=== PATIENT | male | born 1985 | race American Indian/Alaskan Native ===

== ENCOUNTER 2017-01-13 10:18 | Emergency (ER) | payer OTHER ==
[2017-01-13 10:30] VITALS: RESP 16; TEMP 98.1; BMI 32.7
[2017-01-13] MEDS ORDERED: TDAP Vaccine 0.5 mL Syr IM ONE (10:47)
[2017-01-13] MEDS ORDERED: EPINEPHrine 1 mg/ml (1:1000) Inj SC STA (10:47)
--- NOTE | 2017-01-13 10:52 | ED PDOC ---
Arrival/HPI - General Chief Complaint: Finger,Hand,&Wrist Time Seen by Provider: 01/13/17 10:47 Historian: Patient - History of Present Illness Narrative History of Present Illness (Text): 01/13/17 10:48 This 31 yo male presents to this ED c/o left finger laceration x [employer]. Patient stated he was doing work by himself, when a metal cut finger. He stated he is able to move his finger without problem. Last tetanus is UKN. Patient denies other complains. Time/Duration: Prior to Arrival Symptom Onset: Sudden Context: Home Past Medical History - Provider Review Nursing Documentation Reviewed: Yes - Psychiatric Hx Substance Use: No Family/Social History - Physician Review Nursing Documentation Reviewed: Yes Family/Social History: Other (noncontributory) Smoking Status: Never Smoked Hx Alcohol Use: Yes Frequency of alcohol use: Socially Hx Substance Use: No Allergies/Home Meds Allergies/Adverse Reactions: Allergies No Known Allergies Allergy (Verified 01/13/17 10:30) Home Medications: Home Meds Medication Instructions Recorded Confirmed No Known Home Med 01/13/17 01/13/17 Review of Systems - Review of Systems Constitutional: Normal. absent: Fatigue, Weight Change, Fevers Eyes: Normal ENT: Normal Respiratory: Normal Cardiovascular: Normal Gastrointestinal: Normal Genitourinary Male: Normal Musculoskeletal: Other (left 5th finger laceration) Skin: Normal Neurological: Normal Endocrine: Normal Hemo/Lymphatic: Normal Psychiatric: Normal Physical Exam Vital Signs Temp Pulse Resp BP Pulse Ox 01/13/17 10:25 98.1 F 72 16 125/83 98 Temperature: Afebrile Blood Pressure: Normal Pulse: Regular Respiratory Rate: Normal Appearance: Positive for: Well-Appearing, Non-Toxic, Comfortable Pain Distress: None Mental Status: Positive for: Alert and Oriented X 3 - Systems Exam Head: Present: Atraumatic, Normocephalic Pupils: Present: PERRL Extroacular Muscles: Present: EOMI Conjunctiva: Present: Normal Mouth: Present: Moist Mucous Membranes Neck: Present: Normal Range of Motion Upper Extremity: Present: Normal ROM, NORMAL PULSES, Neurovascularly Intact, Capillary Refill < 2s, Other ((+) superficial laceration at the level of DIPJ area, palmar side. No joint or tendon involvement.). No: Cyanosis, Edema, Tenderness Lower Extremity: Present: Normal Inspection Neurological: Present: GCS=15, CN II-XII Intact, Speech Normal, Motor Func Grossly Intact, Normal Sensory Function, Normal Cerebellar Funct, Gait Normal Skin: Present: Warm, Dry, Normal Color. No: Rashes Psychiatric: Present: Alert, Oriented x 3, Normal Insight, Normal Concentration Medical Decision Making ED Course and Treatment: 01/13/17 12:06 Patient came with a single layer laceration of left 5th finger,. Wound was repaired. Finger has FROM. Tetanus was give. Patient was recommended to keep wound clean and dry for 48 hours, then to clean wound daily with soap and water , and sutures are absorbable. Procedure: Under sterile technique, wound was closed with Monocryl 4-9, interrupted, single layer. Total of 6 sutures were applied. Patient tolerated procedure well. No blood loss. Location: left 6th finger Re-evaluation Time: 12:09 Reassessment Condition: Re-examined, Improved - Medication Orders Current Medication Orders: Discontinued Medications Tetanus/Reduced Diphtheria/Acell Pertussis (Boostrix Vaccine Inj) 0.5 ml IM .ONCE ONE Stop: 01/13/17 10:48 Last Admin: 01/13/17 11:04 Dose: 0.5 ml Immunization Registry Document 01/13/17 11:04 MS (Rec: 01/13/17 11:06 MS [id number]) Immunization Registry Consent Date 01/13/17 Disposition/Present on Arrival - Present on Arrival Any Indicators Present on Arrival: No History of DVT/PE: No History of Uncontrolled Diabetes: No Urinary Catheter: No History of Decub. Ulcer: No History Surgical Site Infection Following: None - Disposition Have Diagnosis and Disposition been Completed?: Yes Diagnosis: Finger laceration Disposition: HOME/ ROUTINE Disposition Time: 12:09 Patient Plan: Discharge Patient Problems: Current Active Problems Problem Status Onset Finger laceration Acute Condition: GOOD Discharge Instructions (ExitCare): Laceration (ED), Care For Your Absorbable Stitches (ED) Additional Instructions: Call private doctor for follow up visit and wound recheck in 2-3 days. Keep wound clean and dry for 2 days, then clean wound with soap and and water daily. Return to emergency if wound becomes infected. Sutures should fall off by themselves within 2 week. Referrals: Ashlyn Medina MD [Family Provider] - Follow up with primary Forms: [email or web address] (Yi)
[2017-01-13] MEDS ORDERED: LIDOCAIN/EPI 1-0.001% 10ML INJ SOL IJ ONE (10:56)
[2017-01-13 12:21] VITALS: BP 120/83; PULSE 80; O2SAT 99
== END 2017-01-13 12:20 | disposition home or self-care (01) ==
LOC: ED 10:18
DX: S61.217A Laceration without foreign body of left little finger without damage to nail, initial encounter (principal); W45.8XXA Other foreign body or object entering through skin, initial encounter; Y92.009 Unspecified place in unspecified non-institutional (private) residence as the place of occurrence of the external cause; Z23 Encounter for immunization

== ENCOUNTER 2017-10-31 22:32 | Emergency (ER) | payer OTHER ==
[2017-10-31 22:47] VITALS: BP 132/65; PULSE 70; RESP 18; TEMP 98.4; O2SAT 97; BMI 31.4
--- NOTE | 2017-10-31 23:05 | ED PDOC ---
Arrival/HPI - General Historian: Patient - History of Present Illness Time/Duration: Prior to Arrival, 4-6 hours Symptom Onset: Sudden Symptom Course: Improving Quality: Aching, Throbbing Severity Level: 4, Mild Context: Work - General Chief Complaint: Trauma Time Seen by Provider: 10/31/17 22:34 - History of Present Illness Narrative History of Present Illness (Text): 10/31/17 23:02 31 year old male, no significant past medical history, presents to the emergency department after sustaining a leg injury at work this afternoon. Patient was using a alesha hammer when a piece of metal flew off and hit his left lateral thigh and right lateral calf. He initially was experiencing 6/10 throbbing, aching pain however it has now 4/10. Movement aggravates his symptoms. He has not taken any pain medication. He states the area has gotten swollen and tender but no open wounds noted. He has some gait unsteadiness. Received tetanus booster a few months ago. Denies fever, chills, nausea, vomiting, skin lesions, chest pain, palpitations, shortness of breath, cough, headache, dizziness, or urinary symptoms. (Alexandro Mina) Past Medical History - Provider Review Nursing Documentation Reviewed: Yes - Psychiatric Hx Substance Use: No Family/Social History - Physician Review Nursing Documentation Reviewed: Yes Family/Social History: No Known Family HX Smoking Status: Never Smoked Hx Alcohol Use: Yes Hx Substance Use: No Allergies/Home Meds Allergies/Adverse Reactions: Allergies No Known Allergies Allergy (Verified 01/13/17 10:30) Home Medications: Home Meds Medication Instructions Recorded Confirmed No Known Home Med 01/13/17 01/13/17 Review of Systems - Physician Review All systems were reviewed & negative as marked: Yes - Review of Systems Constitutional: absent: Fevers Eyes: absent: Vision Changes ENT: absent: Hearing Changes Respiratory: absent: SOB, Cough Cardiovascular: absent: Chest Pain, Palpitations Gastrointestinal: absent: Abdominal Pain, Nausea, Vomiting Genitourinary Male: absent: Dysuria, Hematuria Musculoskeletal: absent: Arthralgias, Back Pain Skin: absent: Rash, Skin Lesions, Laceration Neurological: Gait Changes. absent: Headache, Dizziness Endocrine: absent: Diaphoresis Physical Exam Vital Signs Reviewed: Yes Temperature: Afebrile Blood Pressure: Normal Pulse: Regular Respiratory Rate: Normal Appearance: Positive for: Well-Appearing, Non-Toxic, Comfortable Pain Distress: Mild Mental Status: Positive for: Alert and Oriented X 3 - Systems Exam Head: Present: Atraumatic, Normocephalic Pupils: Present: PERRL Extroacular Muscles: Present: EOMI Mouth: Present: Moist Mucous Membranes Respiratory/Chest: Present: Clear to Auscultation, Good Air Exchange. No: Respiratory Distress, Accessory Muscle Use Cardiovascular: Present: Regular Rate and Rhythm, Normal S1, S2. No: Murmurs Abdomen: No: Tenderness, Distention, Peritoneal Signs Upper Extremity: Present: Normal Inspection, Normal ROM, NORMAL PULSES Lower Extremity: Present: CALF TENDERNESS, NORMAL PULSES, Tenderness, Swelling. No: Cyanosis, Normal ROM, Erythema, Deformity Skin: Present: Warm, Dry. No: Laceration, Abrasion Psychiatric: Present: Alert, Oriented x 3, Normal Insight, Normal Concentration Vital Signs Temp Pulse Resp BP Pulse Ox 10/31/17 22:43 98.4 F 70 18 132/65 97 Medical Decision Making ED Course and Treatment: Impression: Pt seen and evaluated with medical logistics specialist. Aware and agree with HPI, clinical findings, plan, and management. Pt, with no significant past medical history, presented after a piece of metal hit his left lateral thigh and right lateral calf at work this afternoon. Plan: -- XR Right Tibia/Fibula -- US Duplex Lower Extremities -- Reassess and disposition (Lupillo Pickens) 10/31/17 23:07 31M, no significant PMH, presents to ED after sustaining leg injury to left lateral thigh and right lateral calf. Swelling noted. LE US Right Tib-Fib x-ray Patient refused pain medication 10/31/17 23:52 X-ray shows no signs of fracture. US shows no DVT Patient would not like any medication. Patient states pain level is unchanged. Patient to follow up with PMD within 3-5 days. Tylenol for pain. If symptoms worsen, please return to ED. Patient verbalized understanding and agreement of treatment plan. Case reviewed and discussed with attending provider. (Alexandro Mina) - RAD Interpretation Radiology Orders: 10/31/17 22:59 TIBIA FIBULA RIGHT [RAD] Stat DUPLEX LOWER EXTRM VEIN BILAT [US] Stat Disposition/Present on Arrival - Present on Arrival Any Indicators Present on Arrival: No History of DVT/PE: No History of Uncontrolled Diabetes: No Urinary Catheter: No History of Decub. Ulcer: No History Surgical Site Infection Following: None - Disposition Have Diagnosis and Disposition been Completed?: Yes Disposition Time: :18 Patient Plan: Discharge - Disposition Diagnosis: Leg injuries Disposition: HOME/ ROUTINE Condition: STABLE Additional Instructions: Patient to follow up with primary medical doctor within 3-5 days. Tylenol for pain. If symptoms worsen, please return to ED. Referrals: FAMILY PROVIDER,NO [Primary Care Provider] - Follow up with primary Jazmin Campos MD [Medical Doctor] - Follow up with primary Forms: [employer] (Hebrew)
--- NOTE | 2017-11-01 09:19 | RAD ---
Date of service: 10/31/2017 PROCEDURE: Radiographs of the right tibia and fibula. HISTORY: leg injury, r/o fracture, r/o sprain COMPARISON: None available TECHNIQUE: Frontal and lateral views obtained. FINDINGS: BONES: No acute fracture or destructive bony lesion identified. JOINT SPACES: Unremarkable. OTHER FINDINGS: None. IMPRESSION: Unremarkable radiographs of the right tibia and fibula.
--- NOTE | 2017-11-01 09:29 | US ---
HISTORY: Leg pain and swelling. Evaluate for DVT PHYSICIAN(S): Kenneth Phoenix MD. TECHNIQUE: Duplex sonography and color-flow Doppler with graded compression were used to evaluate the deep venous systems of both lower extremities. FINDINGS: The visualized deep venous systems of both lower extremities are sonographically normal and compressible. Normal wave forms and augmentation are seen. There is no sonographic evidence for deep venous thrombosis in the visualized segments of both lower extremities. IMPRESSION: No sonographic evidence for deep venous thrombosis in the visualized segments of both lower extremities.
== END 2017-11-01 01:23 | disposition home or self-care (01) ==
LOC: ED 22:32
DX: S79.922A Unspecified injury of left thigh, initial encounter (principal); S89.91XA Unspecified injury of right lower leg, initial encounter; W22.8XXA Striking against or struck by other objects, initial encounter; Y99.0 Civilian activity done for income or pay